=== PATIENT | female | born 1975 | race Caucasian/White ===

== ENCOUNTER 2016-08-04 23:33 | Emergency (ER) | payer BC ==
[~2016-08-04] VITALS: Ht 149.9 cm; Wt 43.0 kg
[2016-08-04 23:35] VITALS: BP 134/68; PULSE 71; RESP 14; TEMP 97.5; O2SAT 100
[2016-08-04] MEDS ORDERED: TOBR.3%O EACH EYE (23:57)
[2016-08-05] MEDS ORDERED: TOBRAMYCIN SULFATE 0.3% OPTH OINT 3.5 GM TUBE EACH EYE ONE
--- NOTE | 2016-08-05 00:02 | PD ---
HPI Chief Complaint: Eye Problems/Injury Time Seen by Provider: 23:48 Travel History International Travel<30 days: No Contact w/Intl Traveler<30days: No Traveled to known affect area: No History of Present Illness HPI 41-year-old female with no significant past medical history presents for evaluation of bilateral eye irritation and redness and itching. She reports that symptoms started yesterday morning in the left eye. Today she developed similar symptoms in the right eye which prompted evaluation. She reports matting of the left eyelid this morning. She reports yellow and clear drainage from the eyes as well as itching and irritation but no significant pain and body sensation. She does work contacts on a daily basis but has avoided sleeping with the contacts in. 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 She was wearing safety glasses at the time. She has had some cough and congestion and hoarse voice over the past few days as well. She has no other complaints at this time. [facility] Past Medical History Medical History: Denies Significant Hx Social History Alcohol Use: No Tobacco Use: No Substance Use: No Allergies-Medications (Allergen,Severity, Reaction): Coded Allergies: No Known Allergies (Unverified , 08/04/16) Review of Systems Except as stated in HPI: all other systems reviewed are Neg Physical Exam Narrative GENERAL: Well-developed well-nourished female in no acute distress SKIN: Warm and dry. HEAD: Atraumatic. Normocephalic. EYES: Pupils equal and round reactive to light extraocular muscles are intact. Bilateral conjunctival injection is present without chemosis or periorbital erythema or edema. Wood's lamp was performed revealing no areas of increased corneal uptake. ENT: No nasal bleeding or discharge. Mucous membranes pink and moist. NECK: Trachea midline. No JVD. CARDIOVASCULAR: Regular rate and rhythm. No murmur appreciated. RESPIRATORY: No accessory muscle use. Clear to auscultation. Breath sounds equal bilaterally. Data Data Last Documented VS Vital Signs Date Time Temp Pulse Resp B/P Pulse Ox O2 Delivery O2 Flow Rate FiO2 08/04/16 23:35 97.5 71 14 134/68 100 Room Air Orders Tobramycin 0.3% Opth Oint (Tobrex 0.3% O (08/05/16 00:00) [facility] Medical Decision Making Medical Screen Exam Complete: Yes Emergency Medical Condition: Yes Medical Record Reviewed: Yes Differential Diagnosis Bacterial conjunctivitis, viral conjunctivitis, allergic conjunctivitis, bilateral corneal ulcerations, bilateral corneal abrasions, bilateral corneal foreign bodies Narrative Course 41-year-old female who has had cough and cold symptoms over the past several days presents after developing left eye itchiness, redness, clear and yellow drainage, irritation yesterday and now developing similar symptoms in the right eye with associated matting of the left eyelids. Examination reveals conjunctival injection bilaterally with no evidence of corneal abrasion or corneal ulceration. Her symptoms are classic for infectious conjunctivitis, bacterial versus viral. Plan is to treat the patient with Tobrex ophthalmic ointment. Recommended avoiding contact use until symptoms have resolved. She is stable for discharge. Diagnosis Primary Impression: Acute conjunctivitis, bilateral Qualified Code: H10.33 - Acute conjunctivitis of both eyes, unspecified acute conjunctivitis type Additional Instructions: Use the antibiotic drops as prescribed. No contact use until symptoms have completely resolved. Wash hands frequently. Wash pillow and pillowcase. Return for any emergent medical conditions. Med/Other Pt SpecificInfo: Prescription(s) given Scripts Tobramycin Opth Oint (Tobrex Opth Oint)0.3 % Oint1 Applic EACH EYE TID 7 Days Ref 0 Prov:Maximiliano Vásquez MD 08/04/16 Disposition: 01 DISCHARGE HOME Condition: Stable Endy Comer Aug 05, 2016 00:02
== END 2016-08-05 03:56 | disposition home or self-care (01) ==
LOC: NEPB 23:33
DX: H10.33 Unspecified acute conjunctivitis, bilateral (principal)
CPT/HCPCS: 99282